=== PATIENT | female | born 1985 | race Caucasian/White ===

== ENCOUNTER → 2017-03-10 | Outpatient (CLI) | payer OTHER ==
[~2017-03-10] MED LIST: ALBUTEROL INHALER INH; BACTRIM DS TABL1 TA1 PO; CLARITIN10 M3 PO; DEPO-PROVER150 MG/ML INJ; IBUPROFEN PO; KETOPROFEN PO; LEVAQUIN PO; METFORMIN PO; NO MEDICATIONS; PERCOCET 5-3251 TAB PO; PERCOCET PO; SKELAXIN PO; ULTRAM PO; VICTOZA0.6 MG/0.1; VYVANSE50 MG
--- NOTE | ~2017-03-10 | US5 ---
[facility] A Service of [facility] / [facility] RADIOLOGY TEXT RESULTS PATIENT: ARIADNA DILLON LOCATION: [facility] : 85 UNIT #: [id number] AGE: [address]: LINCOLN MONTOYA SEX: F ORDER DR: [id number] [place], [place] [address] [id number] O MR#: [id number] Acc #: [id number] NAME: ARIADNA DILLON : 1985 SEX: F STUDY DATE/TIME: 03/10/2017 7:44 UNIT: [facility]US ROOM: STUDY DESCRIPTION: US Abdominal Complete Attending Physician: Lincoln Montoya Aprn Referring Physician: Lincoln Montoya Aprn Ordering Physician: Physician Non-Staff Primary Care Physician: Emily Ortega M.D. MEDICAL IMAGING REPORT This report is preliminary unless electronic signature is present EXAM Abdominal ultrasound INDICATION Hepatitis C. Observation for cirrhosis, hepatocellular carcinoma. PROCEDURE Williamson-scale, Doppler imaging of the abdomen. COMPARISON CT from 08/30/2013. FINDINGS Visualized segments abdominal aorta and inferior vena cava unremarkable. Liver measures 17.1 cm. No liver mass on submitted images. There is a 1.9 cm cyst upper pole right kidney. Common duct measures 4 mm. The left kidney measures 11.2 cm. Spleen measures 12.5 cm. Right kidney measures 10.7 cm. No hydronephrosis. IMPRESSION 1. No liver mass. The liver has homogeneous echotexture. 2. Spleen is normal in size. 3. Gallbladder not seen, presumed surgically absent. Dictated by... Pierre Person M.D. THIS IS AN ELECTRONICALLY VERIFIED REPORT Pierre Person M.D. at 03/11/2017 7:19 AM VIKTOR/maureen TD: 03/10/2017 13:21 [facility] A Service of [facility] / [facility] RADIOLOGY TEXT RESULTS PATIENT: ARIADNA DILLON LOCATION: [facility] : 85 UNIT #: [id number] AGE: [address]: LINCOLN MONTOYA SEX: F ORDER DR: JOB #: [id number] MEDICAL IMAGING REPORT Page 1 of 1 COPY
== END | disposition home or self-care (01) ==
LOC: CGUS 07:15
DX: B18.2 Chronic viral hepatitis C (principal)
CPT/HCPCS: 76700